=== PATIENT | male | born 1980 | race Caucasian/White ===

== ENCOUNTER 2021-09-29 18:40 | Emergency (ER) | payer OTHER ==
[2021-09-29 21:03] LABS: HEMOGLOBIN 17.6 gm/dl (14.0-17.5); RED BLOOD COUNT 5.58 M/UL (4.20-5.50)
[2021-09-29 21:25] LABS: BUN/CREATININE RATIO 17 (0-10)
== END 2021-09-30 10:40 ==
LOC: ER1 18:40
PROVIDERS: Physician Assistant
DX: E86.0 Dehydration (principal); R44.0 Auditory hallucinations; F17.220 Nicotine dependence, chewing tobacco, uncomplicated; F15.10 Other stimulant abuse, uncomplicated
CPT/HCPCS: 0240U; 70450; 71045; 80053; 80307; 81001; 82140; 85025; 87086; 99285; G0480